=== PATIENT | female | born 1995 | race Caucasian/White ===

== ENCOUNTER 2022-10-21 17:27 | Observation (INO) | payer OTHER ==
[2022-10-21 17:36] VITALS: BMI 27.8
[2022-10-21 19:49] LABS: EPI CELLS 24 /uL (0-25.1); HYALINE CASTS 0 /uL (0-3.1); URINE APPEARANCE CLEAR; URINE BACTERIA 69 /uL (0-1359); URINE BILIRUBIN NEGATIVE (NEGATIVE); URINE COLOR ORANGE; URINE GLUCOSE (UA) NEGATIVE (NEGATIVE); URINE KETONE TRACE (NEGATIVE); URINE LEUK ESTERASE 1+ (NEGATIVE); URINE NITRITE NEGATIVE (NEGATIVE); URINE PROTEIN NEGATIVE (NEGATIVE); URINE RBC 116 /uL (0-23.9); URINE UROBILINOGEN 0.2 mg/dL (0.2-1.0); URINE WBC 33 /uL (0-25.8)
[2022-10-21 20:26] LABS: VENOUS PCO2 41.9 mmHg (38-52); VENOUS PH 7.345 (7.310-7.410)
[2022-10-21 20:27] LABS: VENOUS BASE EXCESS -3.2 mmol/L (-2-2); VENOUS O2 SATURATION 31.7 % (70-80)
[2022-10-21 20:40] LABS: INR 1.27 (0.83-1.09); PROTHROMBIN TIME (PATIENT) 14.7 SEC (9.7-13.0)
[2022-10-21 20:43] LABS: YEAST NONE SEEN (NEGATIVE)
[2022-10-21 20:43] LABS: ACTIVATED PTT 28.6 SECONDS (25.2-36.5)
[2022-10-21 20:56] LABS: BLOOD UREA NITROGEN 5.6 mg/dL (7-18); CALCIUM 8.8 mg/dL (8.5-10.1)
[2022-10-21 21:00] LABS: CREATININE 0.7 mg/dL (0.55-1.3)
[2022-10-21 21:01] LABS: BILIRUBIN,TOTAL 0.6 mg/dL (0.2-1)
[2022-10-21 22:31] LABS: BASO % 0.3 % (0-2.0); EOS % 0.1 % (0-4.5); HEMOGLOBIN 8.8 GM/dL (10.7-15.3); LYMPH % 18.5 % (8-40); MCH 27.4 pg (25.7-33.7); MCHC 33.8 g/dl (32.0-36.0); MEAN CELL VOLUME 81.2 fl (80-96); MEAN PLT VOLUME 9.6 fl (7.5-11.1); MONO % 8.2 % (3.8-10.2); NEUT % 72.9 % (42.8-82.8); PLATELET COUNT 174 10^3/uL (134-434); RBC 3.21 M/mm3 (3.60-5.2); RDW 15.5 % (11.6-15.6); WHITE BLOOD COUNT 3.6 K/mm3 (4.0-10.0)
[2022-10-21] MEDS ORDERED: morphine CARPU-JECT 2 MG/1 ML DISP.SYRIN IVPUSH ONE (23:23)
[2022-10-21] MEDS ORDERED: DOXYCYCLINE HYCLATE 100 MG CAPSULE PO ONE ×2 (23:30→23:55)
[2022-10-21] MEDS ORDERED: CEFTRIAXONE 1,000 MG in DEXTROSE 5%-WATER - 50 ML IVPB ONE (23:34)
[2022-10-21] MEDS ORDERED: CEFTRIAXONE 1 GM/50 ML BAG ONE (23:55)
[2022-10-22 02:57] VITALS: PULSE 84; RESP 18
[2022-10-22] MEDS ORDERED: SODIUM CHLORIDE 1,000 ML IV SCH (03:15)
[2022-10-22] MEDS ORDERED: ACETAMINOPHEN 1000 MG/100 ML BAG IVPB PRN (09:54)
[2022-10-22] MEDS ORDERED: CEFTRIAXONE 1 GM in DEXTROSE 5%-WATER - 50 ML IVPB SCH (10:00)
[2022-10-22] MEDS ORDERED: DOXYCYCLINE INJECTION 100 MG in DEXTROSE 5%-WATER 100 ML IVPB SCH (10:00)
[2022-10-22 10:15] LABS: HEMATOCRIT 24.8 % (32.4-45.2); HEMOGLOBIN 8.6 GM/dL (10.7-15.3); MCH 27.9 pg (25.7-33.7); MCHC 34.7 g/dl (32.0-36.0); MEAN CELL VOLUME 80.3 fl (80-96); MEAN PLT VOLUME 10.6 fl (7.5-11.1); PLATELET COUNT 166 10^3/uL (134-434); RBC 3.09 M/mm3 (3.60-5.2); RDW 15.3 % (11.6-15.6); WHITE BLOOD COUNT 2.9 K/mm3 (4.0-10.0)
[2022-10-22 13:22] VITALS: BP 114/62; TEMP 98.5
== END 2022-10-22 16:42 | disposition home or self-care (01) ==
LOC: JER 17:27 → JERBED 23:29 → J5S 10-22 02:50
PROVIDERS: ADMIT Internal Medicine; ATTEND Internal Medicine
PROC: 3E03329 Introduction of Other Anti-infective into Peripheral Vein, Percutaneous Approach (ICD-10-PCS; principal; 2022-10-21)
PROC: 3E033GC Introduction of Other Therapeutic Substance into Peripheral Vein, Percutaneous Approach (ICD-10-PCS; 2022-10-21)
PROC: 3E0337Z Introduction of Electrolytic and Water Balance Substance into Peripheral Vein, Percutaneous Approach (ICD-10-PCS; 2022-10-21)
PROC: 3E033NZ Introduction of Analgesics, Hypnotics, Sedatives into Peripheral Vein, Percutaneous Approach (ICD-10-PCS; 2022-10-21)
DX: O73.1 Retained portions of placenta and membranes, without hemorrhage (principal); R74.8 Abnormal levels of other serum enzymes; Z87.59 Personal history of other complications of pregnancy, childbirth and the puerperium; G89.4 Chronic pain syndrome
CPT/HCPCS: 0241U-QW; 36415; 76830-TC; 80053; 81003; 82728; 82803; 83540; 83550; 83605; 83735; 84702; 85025; 85027; 85610; 85730; 86850; 86900; 86901; 87040; 87081; 87086; 87186; 93005; 93010; 96365; 96367; 96368; 96375; 96376; 99285-25; G0378

== ENCOUNTER 2024-01-07 23:59 | Emergency (ER) | payer OTHER ==
[2024-01-08 00:05] VITALS: BMI 26.6
[2024-01-08 01:31] VITALS: BP 92/62; PULSE 83; RESP 18; TEMP 98.4
== END 2024-01-08 01:59 | disposition home or self-care (01) ==
LOC: JER 23:59
DX: Z53.21 Procedure and treatment not carried out due to patient leaving prior to being seen by health care provider (principal)
CPT/HCPCS: 76801-TC; 99281-25